=== PATIENT | male | born 1950 | race Asian ===

== ENCOUNTER 2020-12-07 12:06 | Outpatient (CLI) | payer OTHER ==
[~2020-12-07 12:06] MED LIST: AMITRIPTYLIN100 MG PO; ASA LO-DOSE81 MG OR; DICL75TA4 PO; DUTA0.5C PO; FISH OIL1 C10 PO; HYDROCHLOROT12.5 M1 PO; HYOSCYAMINE0.125 M2 PO; MECL25TA84 PO; METOPROLOL25 M1 OR; OMNIPRED1 % OP; PANT40TA PO; POLY3350 PO; VIT B12 ER1000 MCG OR
== END 2020-12-07 22:03 | disposition home or self-care (01) ==
LOC: CT 12:06
PROVIDERS: ATTEND Nurse Practitioner Family
DX: R10.11 Right upper quadrant pain (principal); R10.12 Left upper quadrant pain; R10.815 Periumbilic abdominal tenderness
CPT/HCPCS: 36415; 82565; 84520; Q9963

== ENCOUNTER 2021-03-24 20:18 | Emergency (ER) | payer OTHER ==
[~2021-03-24] VITALS: Ht 167.6 cm; Wt 78.0 kg
[2021-03-24 20:28] VITALS: TEMP 99.2
[2021-03-24 21:20] LABS: PLATELET COUNT 239 K/uL (142-355)
[2021-03-24 21:27] LABS: POTASSIUM 4.1 mmol/L (3.6-5.2)
[2021-03-25 00:45] VITALS: BP 117/58
== END 2021-03-25 00:30 | disposition home or self-care (01) ==
LOC: ED 20:18
PROVIDERS: Family Medicine
DX: N43.2 Other hydrocele (principal); N34.2 Other urethritis
CPT/HCPCS: 36415; 80053; 81000; 85027; 87077; 87086; 87088; 87186; 96361; 96365; 96375; 99284; J0696; J1885; J2405